=== PATIENT | male | born 1965 ===

== ENCOUNTER 2024-12-12 08:50 | Emergency (ER) | payer MEDICARE, OTHER ==
[~2024-12-12] VITALS: Ht 182.9 cm; Wt 75.6 kg
[2024-12-12] MEDS ORDERED: METHADONE HCL10 MG PO (08:59)
[2024-12-12 10:02] VITALS: BP 00/00
== END 2024-12-12 10:02 | disposition other institution, planned readmission (95) ==
LOC: ED 08:50
DX: T40.491A Poisoning by other synthetic narcotics, accidental (unintentional), initial encounter (principal); Z79.899 Other long term (current) drug therapy; Z53.21 Procedure and treatment not carried out due to patient leaving prior to being seen by health care provider
CPT/HCPCS: 99284